=== PATIENT | female | born 1965 | race Caucasian/White ===

== ENCOUNTER 2023-12-19 06:44 | Day surgery (SDC) | payer BC ==
[2023-12-19] MEDS: Dextrose 5%-0.45% NaCl 1,000 ML IV SCH (07:24)
[2023-12-19] MEDS ORDERED: Midazolam 1 MG/ML 2 ML SDV ONE (08:00)
[2023-12-19] MEDS ORDERED: fentaNYL 100 MCG/2 ML SDV IV ONE (08:00)
[2023-12-19] MEDS ORDERED: fentaNYL 100 MCG/2 ML SDV ONE (08:01)
[2023-12-19] MEDS ORDERED: Midazolam 1 MG/ML 2 ML SDV IV ONE (08:01)
[2023-12-19] MEDS: Midazolam 1 MG/ML 2 ML SDV IV ONE ×2 (08:13)
[2023-12-19] MEDS: fentaNYL 100 MCG/2 ML SDV IV ONE ×2 (08:13→08:16)
== END 2023-12-19 09:41 | disposition home or self-care (01) ==
LOC: DL.ENDO 06:44
PROVIDERS: ATTEND Internal Medicine Gastroenterology
DX: R13.10 Dysphagia, unspecified (principal); K44.9 Diaphragmatic hernia without obstruction or gangrene; I10 Essential (primary) hypertension; E78.5 Hyperlipidemia, unspecified; E83.52 Hypercalcemia
CPT/HCPCS: 43239; J2250; J3010; J7799